=== PATIENT | male | born 1950 | race Hispanic/Latino ===

== ENCOUNTER 2016-12-03 06:16 | Inpatient (IN) | payer MEDICARE, OTHER ==
[2016-12-02 14:58] VITALS: BMI 39.4
--- NOTE | 2016-12-03 07:01 | CP.PCM.HP ---
History of Present Illness - History of Present Illness History of Present Illness: PCP: Alden Osorio MD Orthopedic Surgeon: Dr Ybarra Chief Complaint: Chronic left Hip Osteoarthritis HPI: 65 years old male with Hx of HLD and Gastritis and osteoarthritis comes for an elective Left Total Hip replacement. He has been with left hip pain due to osteoarthritis for many years, treated with conservative management. At present he cannot tolerate the pain which is not relieved with analgesics so he agreed to the Left THR. He has no headache, dizziness, nausea, vomits, cough. No chest pain nor SOB, no palpitation. No diarrhea, dysuria nor urinary frequency. PMH: HLD; Gastritis; Vertigo. PSH: Right TKR in 01/03/2016 SH: Non smoker; Occasional Alcohol use; No illegal drug use; Live with his family FH: Mother with heart disease Allergies: NKDA Present on Admission - Present on Admission Any Indicators Present on Admission: No History of DVT/PE: No History of Uncontrolled Diabetes: No Urinary Catheter: No Decubitus Ulcer Present: No Review of Systems - Constitutional Constitutional: absent: Anorexia, Chills, Fatigue, Fever, Headache - EENT Eyes: Requires Corrective Lenses. absent: Diplopia, Photophobia, Sees Flashes Ears: absent: Ear Discharge, Ear Pain, Tinnitus Nose/Mouth/Throat: absent: Epistaxis, Nasal Congestion, Nasal Discharge, Sinus Pain, Sinus Pressure, Sore Throat - Cardiovascular Cardiovascular: absent: Chest Pain, Dyspnea, Leg Edema, Orthopnea - Respiratory Respiratory: absent: Cough, Dyspnea, Wheezing, Stridor - Gastrointestinal Gastrointestinal: absent: Abdominal Pain, Constipation, Diarrhea, Nausea, Vomiting - Genitourinary Genitourinary: absent: Dysuria, Flank Pain, Hematuria, Freq UTI - Musculoskeletal Musculoskeletal: absent: Muscle Weakness Additional comments: pain to the left hip on ambulation - Integumentary Integumentary: absent: Pruritus, Rash, Skin Ulcer, Sores, Swelling - Neurological Neurological: absent: Dizziness, Focal Weakness, Memory Loss, Weakness - Psychiatric Psychiatric: absent: Anxiety, Depression, Panic Attacks - Endocrine Endocrine: absent: Palpitations, Polydipsia, Polyphagia, Polyuria - Hematologic/Lymphatic Hematologic: absent: Easy Bleeding, Easy Bruising Past Patient History - Past Medical History & Family History Past Medical History?: Yes - Past Social History Smoking Status: Never Smoked Chewing Tobacco Use: No Cigar Use: No Alcohol: Social Home Situation {Lives}: With Family - CARDIAC Hx Cardiac Disorders: Yes Hx Hypercholesterolemia: Yes - PULMONARY Hx Respiratory Disorders: No - NEUROLOGICAL Hx Neurological Disorder: Yes Hx Vertigo: Yes - HEENT Hx HEENT Problems: No - RENAL Hx Chronic Kidney Disease: No - ENDOCRINE/METABOLIC Hx Endocrine Disorders: No - HEMATOLOGICAL/ONCOLOGICAL Hx Blood Disorders: No - INTEGUMENTARY Hx Dermatological Problems: No - MUSCULOSKELETAL/RHEUMATOLOGICAL Hx Musculoskeletal Disorders: Yes Hx Arthritis: Yes Hx Osteoarthritis: Yes Other/Comment: MUSCLE WEAKNESS.LIMIT MOTION - GASTROINTESTINAL Hx Gastrointestinal Disorders: No - GENITOURINARY/GYNECOLOGICAL Hx Genitourinary Disorders: No - PSYCHIATRIC Hx Psychophysiologic Disorder: No - SURGICAL HISTORY Hx Surgeries: Yes Hx Joint Replacement: Yes (TOTAL LEFT KNEE REPLACEMENT 01/03/2016) Other/Comment: EXCISION LIPOMA ON BACK - ANESTHESIA Hx Anesthesia: Yes Hx Anesthesia Reactions: No Hx Malignant Hyperthermia: No Has any member of the family had a problem w/ anesthesia?: No Meds Allergies/Adverse Reactions: Allergies Allergy/AdvReac Type Severity Reaction Status Date / Time No Known Allergies Allergy Verified 12/02/16 14:58 Physical Exam - Head Exam Head Exam: ATRAUMATIC, NORMAL INSPECTION, NORMOCEPHALIC - Eye Exam Eye Exam: EOMI, Normal appearance Pupil Exam: NORMAL ACCOMODATION, PERRL - ENT Exam ENT Exam: Mucous Membranes Moist, Normal Exam, Normal External Ear Exam, Normal Oropharynx - Neck Exam Neck exam: Positive for: Full Rom, Normal Inspection. Negative for: Lymphadenopathy, Tenderness - Respiratory Exam Respiratory Exam: Clear to Auscultation Bilateral. absent: Rales, Wheezes - Cardiovascular Exam Cardiovascular Exam: REGULAR RHYTHM, RRR, +S1, +S2. absent: Gallop, JVD - GI/Abdominal Exam GI & Abdominal Exam: Normal Bowel Sounds, Soft. absent: Mass, Organomegaly, Tenderness - Rectal Exam Rectal Exam: Deferred - Extremities Exam Extremities exam: Negative for: calf tenderness, joint swelling, pedal edema - Back Exam Back exam: NORMAL INSPECTION. absent: CVA tenderness (L), CVA tenderness (R) - Neurological Exam Neurological exam: Alert, CN II-XII Intact, Oriented x3, Reflexes Normal - Psychiatric Exam Psychiatric exam: Normal Affect, Normal Mood - Skin Skin Exam: Dry, Intact, Normal Color, Warm Results - Vital Signs Recent Vital Signs: Last Vital Signs Temp 98.2 F 12/03/16 06:46 Pulse 58 L 12/03/16 06:49 Resp 20 12/03/16 06:46 BP 144/78 12/03/16 06:46 Pulse Ox 98 12/03/16 06:46 - Labs Labs: 11/19/16 Hb 15.9g HT 47.8 WBC 8.1 Potassium 4.1 Sodium 140 Creatinine 0.83 INR 1.1 PTT 32 - EKG Data EKG comments: Sinus Bradycardia 59/min - Imaging and Cardiology Chest x-ray Status: Report reviewed by me Additional comment: No infiltrate Assessment & Plan - Assessment and Plan (Free Text) Assessment: #. Osteoarthritis of left Hip #. HLD #. Gastritis Plan: 65 years old male with Hx of HLD and Gastritis and osteoarthritis comes for an elective Left Total Hip replacement. He has been with left hip pain due to osteoarthritis for many years, treated with conservative management. #. Osteoarthritis of left Hip for Elective Left THR - Consult Dr Ybarra Orthopedic - orhtopedic management - post OP DVT prophylaxis - Post Op pain management #. HLD - Zocor 20mg PO daily Post OP #. Gastritis - Pantoprazole Post OP #. Code Status: Full - Date & Time Date: 12/03/16 Time: 07:01
[2016-12-03] MEDS ORDERED: Bacitracin Ointment 30 GM TUBE ONE (07:11)
[2016-12-03] MEDS ORDERED: Bupivacaine 0.5% Inj(30mL) ONE (07:11)
[2016-12-03] MEDS ORDERED: Lidocaine 1% Inj (20ml) ONE (07:11)
[2016-12-03] MEDS ORDERED: Thrombin Topical 5,000 IU Spray Kit ONE (07:12)
[2016-12-03] MEDS ORDERED: Absorbable Gelatin Sponge Size 100 ONE (07:12)
[2016-12-03] MEDS ORDERED: Midazolam 2 MG/2 ML VIAL ONE (07:38)
[2016-12-03] MEDS ORDERED: Propofol 10 mg/ml Inj (20 ML) ONE (07:38)
[2016-12-03] MEDS ORDERED: Succinylcholine 200 mg/10 ml Inj IV ONE (07:39)
[2016-12-03] MEDS ORDERED: Morphine 1 mg/ml preservative-free Inj(Duramorph) ONE (07:42)
[2016-12-03] MEDS ORDERED: Rocuronium 10 mg/ml (5 ml) ONE ×2 (08:08→08:51)
[2016-12-03] MEDS ORDERED: ePHEDrine 50 mg/ml Inj ONE (09:10)
[2016-12-03] MEDS ORDERED: Lactated Ringer's 1,000 ML IV ONE ×3 (09:30→16:30)
[2016-12-03] MEDS ORDERED: Sevoflurane - Inhalation Anesthetic Liq (250 ml) ONE (09:37)
[2016-12-03] MEDS ORDERED: Neostigmine Methylsulfate 3mg/3ml Syringe IV ONE (11:14)
[2016-12-03] MEDS ORDERED: Neostigmine Methylsulfate 2 MG/2 ML ML IV ONE (11:36)
[2016-12-03] MEDS ORDERED: Dexamethasone 4 mg/1 ml IVP PRN (11:54)
[2016-12-03] MEDS ORDERED: Oxycodone/Acetaminophen 5/325 mg Tab PO PRN (11:56)
[2016-12-03] MEDS: HYDROmorphone 0.5 mg/0.5 ml ISec IVP PRN ×2 (12:30→13:50)
[2016-12-03] MEDS ORDERED: Pneumococcal 23-Valent Vaccine IM ONE (13:02)
--- NOTE | 2016-12-03 15:01 | RAD ---
PROCEDURE: Fluoroscopy up to 1 hr. HISTORY: LEFT HIP COMPARISON: None TECHNIQUE: Standard protocol for this study/examination. FINDINGS: Total fluoroscopic time (continuous mode) utilized during the procedure: 28.2 seconds. IMPRESSION: Less than 1 hr fluoroscopic time utilized during performance of the procedure.
--- NOTE | 2016-12-03 15:08 | RAD ---
PROCEDURE: Left hip single view HISTORY: post op left anterior hip replacement COMPARISON: None TECHNIQUE: Standard protocol for this study/examination. FINDINGS: Satisfactory position alignment of components left OWEN. Severe degenerative changes right hip. IMPRESSION: Satisfactory postoperative status.
[2016-12-03] MEDS: ceFAZolin 2 GM in Sodium Chloride 0.9% 100 ML IVPB SCH (16:06)
[2016-12-04] MEDS: ceFAZolin 2 GM in Sodium Chloride 0.9% 100 ML IVPB SCH (00:46)
[2016-12-04] MEDS: Pantoprazole 40 mg EC Tab PO SCH (08:37)
--- NOTE | 2016-12-04 10:44 | PCM.SURG1 ---
Surgeon's Initial Post Op Note - Surgeon's Notes Surgeon: Amada Office Clerk Assistant: ANISH Sainz/ 2nd assist Maldonado Liz Type of Anesthesia: General Endo, Spinal Anesthesia Administered By: DR Barber Pre-Operative Diagnosis: Severe hypeertrophic O/A L hip Operative Findings: as abobe. marked synopvitis L hip. multiplew contractures aroung thew hip+ iliopsoas tendon Post-Operative Diagnosis: as above Operation Performed: L THR. femoral neck osteotomy. arthrotomy/ synovectomy. release iliopsoas tendon Specimen/Specimens Removed: fermoral neck/synovium/cartilage bone ( femoral head ) Estimated Blood Loss: EBL {In ML}: 35 Blood Products Given: N/A Drains Used: No Drains Post-Op Condition: Good Date of Surgery/Procedure: 12/04/16 Time of Surgery/Procedure: 09:35 (time in room 8:30)
[2016-12-04] MEDS ORDERED: Lactated Ringer's 1,000 ML IV SCH (16:00)
[2016-12-04] MEDS ORDERED: Oxycodone/Acetaminophen 5/325 mg Tab PO PRN (18:00)
--- NOTE | 2016-12-04 18:00 | CP.PCM.PN ---
Subjective - Date & Time of Evaluation Date of Evaluation: 12/04/16 Time of Evaluation: 17:00 - Subjective Subjective: Patient seen and examined bedside. s/p Left tHR day #1 . Complains of pain to left hip . participated with PT. Hemodynamically stable, afebrile. No acute issues overnight. Objective - Vital Signs/Intake and Output Vital Signs (last 24 hours): Temp Pulse Resp BP Pulse Ox 99.3 F 85 18 116/72 95 12/04/16 16:24 12/04/16 16:24 12/04/16 16:24 12/04/16 16:24 12/04/16 16:24 - Medications Medications: Current Medications Aspirin (Ecotrin) 81 mg PO DAILY [facility] Last Admin: 12/04/16 08:36 Dose: 81 mg Atorvastatin Calcium (Lipitor) 10 mg PO DAILY [facility] Last Admin: 12/04/16 08:36 Dose: 10 mg Docusate Sodium (Colace) 100 mg PO BID [facility] Last Admin: 12/04/16 16:28 Dose: 100 mg Lactated Ringer's (Lactated Ringer's) 1,000 mls @ 125 mls/hr IV .Q8H [facility] Last Admin: 12/04/16 16:28 Dose: 125 mls/hr Morphine Sulfate (Morphine) 2 mg IVP Q4 PRN PRN Reason: Pain, severe (8-10) Oxycodone/Acetaminophen (Percocet 5/325 Mg Tab) 2 tab PO Q4 PRN PRN Reason: Pain, moderate (4-7) Stop: 12/06/16 11:57 Last Admin: 12/04/16 15:32 Dose: 2 tab Pantoprazole Sodium (Protonix Ec Tab) 40 mg PO DAILY [facility] Last Admin: 12/04/16 08:37 Dose: 40 mg - Constitutional Appears: Non-toxic, No Acute Distress - Head Exam Head Exam: ATRAUMATIC, NORMAL INSPECTION, NORMOCEPHALIC - Eye Exam Eye Exam: EOMI, Normal appearance, PERRL Pupil Exam: NORMAL ACCOMODATION - ENT Exam ENT Exam: Mucous Membranes Moist, Normal Exam - Neck Exam Neck Exam: Full ROM, Normal Inspection - Respiratory Exam Respiratory Exam: Clear to Ausculation Bilateral. absent: Rales, Rhonchi, Wheezes - Cardiovascular Exam Cardiovascular Exam: REGULAR RHYTHM, RRR, +S1, +S2. absent: JVD - GI/Abdominal Exam GI & Abdominal Exam: Soft, Normal Bowel Sounds. absent: Distended, Guarding, Tenderness, Rebound - Rectal Exam Rectal Exam: Deferred - Extremities Exam Extremities Exam: absent: Calf Tenderness, Pedal Edema Additional comments: left hip surgical incision with dressing in place - Back Exam Back Exam: NORMAL INSPECTION - Neurological Exam Neurological Exam: Alert, Awake, CN II-XII Intact, Oriented x3 - Psychiatric Exam Psychiatric exam: Normal Affect, Normal Mood - Skin Skin Exam: Dry, Intact, Normal Color, Warm Assessment and Plan - Assessment and Plan (Free Text) Assessment: 65 years old male with Hx of HLD and Gastritis and osteoarthritis came in for an elective Left Total Hip replacement. He has been with left hip pain due to osteoarthritis for many years, treated with conservative management. Today post op day 1 and doing well.No labs done this AM 1. Osteoarthritis of left Hip , s/p left THR post op day 1 D/c BUSINESS ASST pump and start Percoset PRN for pain control Ortho consulted Dr. Ybarra Incentive spirometry PT/Ot joceline appreciated. To be transferred to [facility] on thursday DVt prophylaxis with ASA Repeat CBC in AM 2.Dyslipidemia Zocor 20 mg 3. Gastritis on Pantoprazole 4. DVt prophylaxis SCd and ASA
[2016-12-04] MEDS: Oxycodone/Acetaminophen 5/325 mg Tab PO PRN (22:47)
[2016-12-05 07:54] LABS: HEMATOCRIT 37.9 % (35.0-51.0); MEAN CELL VOLUME 88.5 fl (80.0-94.0); MEAN CORPUSCULAR HEMOGLOBIN 30.2 pg (27.0-31.0); MEAN CORPUSCULAR HGB CONC 34.2 g/dL (33.0-37.0); RED CELL DISTRIBUTION WIDTH 13.3 % (11.5-14.5); WHITE BLOOD COUNT 8.3 K/uL (4.8-10.8)
--- NOTE | 2016-12-05 08:02 | OP ---
PROCEDURE DATE: 12/04/2016 PREOPERATIVE DIAGNOSIS: Primary osteoarthritis of the left hip. POSTOPERATIVE DIAGNOSES: Primary osteoarthritis of the left hip. Extensive synovitis of the hip vinny nt. PROCEDURES: 1. Left total hip replacement arthroplasty, anterior approach. 2. Femoral neck osteotomy. 3. Release of iliopsoas tendon. 4. Autograft bone graft. 5. Arthrotomy, synovectomy of the hip joint. SURGEON: Rubens Ybarra MD TECHNICIAN ANATOMIC PATHOLOGY: Bonnie Madrigal, Certified Registered Nursing Robotics Technologist. ANESTHESIA: Spinal general anesthesia. BLOOD LOSS: 175 mL. BLOOD PRODUCTS GIVEN: One unit packed red cells. COMPLICATIONS: No complications. DRAINS: No drains. OPERATIVE INDICATION: The patient is a 65-year-old gentleman who presents with severe pain and restr icted range of motion of the left hip. The patient is now well known to my practice. The patient méndez s been having increasing pain in the area of the left hip over the last year. 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 Pros, cons, risks and benefits of surgical approach were discussed. The pos sibility of mechanical failure, infection, thromboembolic disease, secondary or even tertiary surgery was discussed with the patient. The culturally competent sand hauler, his son-in-law, is at the [facility] at the time of obtainment of the consent this morning, 12/01. OPERATIVE PROCEDURE: After having obtained informed consent in the above fashion, after having ident ified side, site and procedure in a critical pause/timeout, after the satisfactory induction of the a nesthetic, the patient identified as the patient, in the supine position with all bony prominences we ll padded, the left lower extremity was placed in the AMIS positioner. The traction positioner and t he left lower extremity was prepped and draped in the usual fashion for anterior approach hip surgery . Under the surgeon's direction, the fluoroscope is positioned, video images are generated, therapeu tic decisions are made therefrom. 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 After sterilely prepping and draping, after having obtained informed consent, after the satisfactory induc tion of spinal and general anesthesia, after having identified side, site, and procedure in a critica l pause/time out, the patient identified as the patient, is sterilely prepped and draped. After revi fernando the intraoperative x-ray and after carefully planning the femoral neck osteotomy because of the pre-existing leg length inequality, an incision is described 1 fingerbreadth distal to the ASIS, 3 f ingerbreadths posterior and 5 fingerbreadths distal. The skin incision is carried down through the s kin and subcutaneous tissue after having identified side, site and procedure in a critical pause/time out. This having been accomplished, the fascia of the tensor fascia femoris is divided. The digastr ic tensor fascia femoris muscle is taken down from the fascia. The modified Adson Kwame retractor is placed. The fascia posterior to the rectus femoris is identified and developed and the fascia is released. The anterior branch of the lateral femoral circumflex vessels are identified after the fas karla is carefully divided and after replacement of the Adson Kwame retractor. This having been acco mplished, the capsulotomy was accomplished at the inferior aspect of the neck and it is elevated in a triangular fashion to the area of the fingerbreadth above the lesser trochanter. This is tagged wit h a stay suture and at this point in time, with the leg having been in external rotation and internal rotation for development of the capsular flap, the planned osteotomy is accomplished. The femoral n lion osteotomy is accomplished at the saddle of the hip in the area of the trochanter 1 fingerbreadth to 2 fingerbreadths above the lesser trochanter in the virtual planning intraoperatively. The femora l neck osteotomy is accomplished. Implant is a separate procedure because of the complexity of the o steotomy in terms of the leg length inequality. This having been accomplished, the head and neck is removed from the acetabulum, traction is turned to 45 degrees, the cork screw is placed. The femoral head and neck are removed. This having been accomplished, the acetabulum is exposed. The labrum is excised. Arthrotomy and synovectomy are accomplished. There is found to be an exuberant synovitis and it should be noted that because of the leg length inequality, the femoral neck osteotomy is plann ed both preoperatively and intraoperatively with portable x-rays. The femoral neck osteotomy having been accomplished, because of its complexity is a separate billing code. At this point in time, arth rotomy and synovectomy are accomplished of the hip joint. The pulvinar is excised. The acetabulum i s exposed with a C retractor and with a modified Charnley retractor in the capsule. Extensive synove ctomy having been accomplished, reaming is accomplished to 54 mm at approximately 40 degrees of abduc tion and 20 degrees of anteversion. Reaming having been accomplished, the reamings are denuded of ar ticular cartilage and this having been accomplished, the 54 trial is found to be excellent and the 54 Medacta cup is impacted after autograft bone grafting to the acetabulum. The reamings denuded of ar ticular cartilage have been used to autograft bone graft to the acetabulum. The cup is impacted and attention is now turned to the femur. With the limb in 90 degrees of external rotation, the pubofemo ral ligament is identified and released. Great care is taken to release the ischial femoral ligament and the iliofemoral ligament. This having been accomplished, the femur is found to be mobile. With the pitchfork retractor, the femoral neck is exposed. With external rotation to another 2 clicks an d with flexion and abduction, the femur is exposed. The bridge of bone between the neck and the troc hanter are removed. The rasp is introduced after burring. Sequential broaching is carried out to a #6 femoral component and it is found to be excellent with a -3.5 head and 54 mm outer bearing. This having been accomplished, the iliopsoas tendon is identified and released because of the contractures after the capsular release had been accomplished. Hemostasis is controlled with the Aquamantys, the wound is thoroughly irrigated. The cup having been placed and bone grafting to the femoral stem is accomplished ____ as well, closure is in layers with 0 Quill, 0 Quill, jose luis for skin. Blood loss is 175 mL. The compression dressing and Aquacel are applied. Rubens Ybarra MD cc: [id number] TT: 12/04/2016 13:48:22 sn
[2016-12-05 08:04] LABS: BLOOD UREA NITROGEN 11 mg/dl (9-20); CALCIUM 8.6 mg/dL (8.4-10.2); CARBON DIOXIDE 27 mmol/L (22-30); CHLORIDE 100 mmol/L (98-107); GFR AFRICAN-AMERICAN > 60; GLUCOSE,RANDOM 125 mg/dL (75-110); POTASSIUM 3.9 MMOL/L (3.6-5.0); SODIUM 138 mmol/l (132-148)
--- NOTE | 2016-12-05 08:21 | CP.PCM.PN ---
Subjective - Date & Time of Evaluation Date of Evaluation: 12/05/16 Time of Evaluation: 08:20 - Subjective Subjective: pt comfortable no gross deficits admitted/with post op incisional discomfort Objective - Vital Signs/Intake and Output Vital Signs (last 24 hours): Temp Pulse Resp BP Pulse Ox 98.7 F 68 20 136/74 95 12/05/16 07:35 12/05/16 07:35 12/05/16 07:35 12/05/16 07:35 12/05/16 07:35 - Medications Medications: Current Medications Aspirin (Ecotrin) 81 mg PO DAILY [facility] Last Admin: 12/04/16 08:36 Dose: 81 mg Atorvastatin Calcium (Lipitor) 10 mg PO DAILY [facility] Last Admin: 12/04/16 08:36 Dose: 10 mg Docusate Sodium (Colace) 100 mg PO BID [facility] Last Admin: 12/04/16 16:28 Dose: 100 mg Oxycodone/Acetaminophen (Percocet 5/325 Mg Tab) 1 tab PO Q4 PRN PRN Reason: Pain, moderate (4-7) Stop: 12/07/16 18:01 Oxycodone/Acetaminophen (Percocet 5/325 Mg Tab) 2 tab PO Q6 PRN PRN Reason: Pain, severe (8-10) Stop: 12/07/16 18:01 Last Admin: 12/04/16 22:47 Dose: 2 tab Pantoprazole Sodium (Protonix Ec Tab) 40 mg PO DAILY [facility] Last Admin: 12/04/16 08:37 Dose: 40 mg - Labs Labs: 12/05/16 06:30 12/05/16 06:30 - Additional Findings Additional findings: Objective stance/gairt- defrred L hip wound benign thigh soft orthopedically stable Assessment and Plan - Assessment and Plan (Free Text) Assessment: A- s/p successful L thr P fwb orthoped ially stable
[2016-12-05] MEDS: Oxycodone/Acetaminophen 5/325 mg Tab PO PRN ×2 (08:53→21:58)
[2016-12-05] MEDS: Pantoprazole 40 mg EC Tab PO SCH (08:53)
--- NOTE | 2016-12-05 09:46 | CP.PCM.PN ---
Subjective - Date & Time of Evaluation Date of Evaluation: 12/05/16 Time of Evaluation: 12:00 - Subjective Subjective: Patient seen and examined bedside. Complains of pain to left hip around the surgical incision. Hemodynamically stable, afebrile. No acute issues overnight. Objective - Vital Signs/Intake and Output Vital Signs (last 24 hours): Temp Pulse Resp BP Pulse Ox 98.7 F 68 20 136/74 95 12/05/16 07:35 12/05/16 07:35 12/05/16 07:35 12/05/16 07:35 12/05/16 07:35 - Medications Medications: Current Medications Aspirin (Ecotrin) 81 mg PO DAILY [facility] Last Admin: 12/05/16 08:53 Dose: 81 mg Atorvastatin Calcium (Lipitor) 10 mg PO DAILY [facility] Last Admin: 12/05/16 08:53 Dose: 10 mg Docusate Sodium (Colace) 100 mg PO BID [facility] Last Admin: 12/05/16 08:53 Dose: 100 mg Oxycodone/Acetaminophen (Percocet 5/325 Mg Tab) 1 tab PO Q4 PRN PRN Reason: Pain, moderate (4-7) Stop: 12/07/16 18:01 Oxycodone/Acetaminophen (Percocet 5/325 Mg Tab) 2 tab PO Q6 PRN PRN Reason: Pain, severe (8-10) Stop: 12/07/16 18:01 Last Admin: 12/05/16 08:53 Dose: 2 tab Pantoprazole Sodium (Protonix Ec Tab) 40 mg PO DAILY [facility] Last Admin: 12/05/16 08:53 Dose: 40 mg - Labs Labs: 12/05/16 06:30 12/05/16 06:30 - Constitutional Appears: Non-toxic, No Acute Distress - Head Exam Head Exam: ATRAUMATIC, NORMAL INSPECTION, NORMOCEPHALIC - Eye Exam Eye Exam: EOMI, Normal appearance, PERRL Pupil Exam: NORMAL ACCOMODATION - ENT Exam ENT Exam: Mucous Membranes Moist, Normal Exam - Neck Exam Neck Exam: Full ROM, Normal Inspection - Respiratory Exam Respiratory Exam: Clear to Ausculation Bilateral, NORMAL BREATHING PATTERN. absent: Rales, Rhonchi, Wheezes - Cardiovascular Exam Cardiovascular Exam: REGULAR RHYTHM, RRR, +S1, +S2. absent: JVD - GI/Abdominal Exam GI & Abdominal Exam: Soft, Normal Bowel Sounds. absent: Distended, Guarding, Tenderness, Rebound - Rectal Exam Rectal Exam: Deferred - Extremities Exam Extremities Exam: Normal Capillary Refill. absent: Pedal Edema Additional comments: left hip surgical incision with dressing in place dry and intact - Back Exam Back Exam: NORMAL INSPECTION - Neurological Exam Neurological Exam: Alert, Awake, CN II-XII Intact, Oriented x3 - Psychiatric Exam Psychiatric exam: Normal Affect, Normal Mood - Skin Skin Exam: Dry, Normal Color, Warm Assessment and Plan - Assessment and Plan (Free Text) Assessment: 65 years old male with Hx of HLD and Gastritis and osteoarthritis came in for an elective Left Total Hip replacement. He has been with left hip pain due to osteoarthritis for many years, treated with conservative management. Today post op day 2 and doing well. 1. Osteoarthritis of left Hip , s/p left THR post op day 2 SKEIN BANDER pump discontinued and started Percoset PRN for pain control. Complains of pain to left hip especially with PT Ortho consulted Dr. Ybarra Continue incentive spirometry PT/OT joceline appreciated. For transfer to [facility] in AM DVT prophylaxis with ASA 2.Dyslipidemia Zocor 20 mg 3. Gastritis on Pantoprazole 4. DVt prophylaxis SCD and ASA
[2016-12-05 20:09] VITALS: RESP 20
[2016-12-05 23:06] LABS: RBC URINE 1 /hpf (0-3); URINE BILIRUBIN NEGATIVE (NEGATIVE); URINE BLOOD NEGATIVE (NEGATIVE); URINE COLOR STRAW (YELLOW); URINE GLUCOSE (UA) NEG (Normal); URINE KETONE NEGATIVE (NEGATIVE); URINE LEUKOCYTE ESTERASE NEG Leu/uL (Negative); URINE PROTEIN NEGATIVE (NEGATIVE); URINE UROBILINOGEN 0.2-1.0 mg/dL (0.2-1.0); WBC URINE < 1 /hpf (0-5)
[2016-12-06 07:10] LABS: HEMATOCRIT 37.5 % (35.0-51.0); MEAN CELL VOLUME 88.3 fl (80.0-94.0); MEAN CORPUSCULAR HEMOGLOBIN 29.5 pg (27.0-31.0); MEAN CORPUSCULAR HGB CONC 33.4 g/dL (33.0-37.0); RED CELL DISTRIBUTION WIDTH 13.2 % (11.5-14.5); WHITE BLOOD COUNT 7.3 K/uL (4.8-10.8)
[2016-12-06 08:17] VITALS: BP 125/74; PULSE 77; TEMP 99.1; O2SAT 95
[2016-12-06] MEDS: Pantoprazole 40 mg EC Tab PO SCH (09:22)
--- NOTE | 2016-12-06 09:33 | CP.PCM.PN ---
Subjective - Date & Time of Evaluation Date of Evaluation: 12/06/16 Time of Evaluation: 09:30 - Subjective Subjective: S- pt with minimal post op discomfort/some concern about inability to SLR ( normal) Objective - Vital Signs/Intake and Output Vital Signs (last 24 hours): Temp Pulse Resp BP Pulse Ox 99.1 F 77 20 125/74 95 12/06/16 08:17 12/06/16 08:17 12/06/16 08:17 12/06/16 08:17 12/06/16 08:17 - Medications Medications: Current Medications Aspirin (Ecotrin) 81 mg PO DAILY [facility] Last Admin: 12/06/16 09:21 Dose: 81 mg Atorvastatin Calcium (Lipitor) 10 mg PO DAILY [facility] Last Admin: 12/06/16 09:21 Dose: 10 mg Docusate Sodium (Colace) 100 mg PO BID [facility] Last Admin: 12/06/16 09:21 Dose: 100 mg Lactulose (Enulose) 20 gm PO DAILY PRN PRN Reason: Constipation Last Admin: 12/06/16 09:22 Dose: 20 gm Oxycodone/Acetaminophen (Percocet 5/325 Mg Tab) 1 tab PO Q4 PRN PRN Reason: Pain, moderate (4-7) Stop: 12/07/16 18:01 Oxycodone/Acetaminophen (Percocet 5/325 Mg Tab) 2 tab PO Q6 PRN PRN Reason: Pain, severe (8-10) Stop: 12/07/16 18:01 Last Admin: 12/05/16 21:58 Dose: 2 tab Pantoprazole Sodium (Protonix Ec Tab) 40 mg PO DAILY [facility] Last Admin: 12/06/16 09:22 Dose: 40 mg - Labs Labs: 12/06/16 05:30 12/05/16 06:30 - Skin Additional comments: Obj systemic- wnl Musculoskeletal stance/gait- defrrpt OOB to chair pt able to extend knee; some minor decrease sensation ant thigh; sensation intact however Xrays- reveal excellent position of construct Assessment and Plan - Assessment and Plan (Free Text) Assessment: s/p L THR - no evidence for neuraPRAXIA;PT ABLE TO EXTEND KNEE P orthopedically stable for transfer
--- NOTE | 2016-12-06 10:28 | CP.PCM.DIS ---
Provider - Provider Date of Admission: 12/03/16 11:47 Attending physician: Yemi Mac MD Primary care physician: Rubens Ybarra III, MD Consults: Ortho: Dr Ybarra Time Spent in preparation of Discharge (in minutes): 30 Diagnosis - Discharge Diagnosis (1) Primary osteoarthritis of left hip Status: Chronic (2) S/P hip replacement Status: Acute (3) Hyperlipidemia Status: Chronic (4) Gastritis Status: Chronic (5) DVT prophylaxis Status: Acute Hospital Course - Lab Results Lab Results: Most Recent Lab Values WBC 7.3 K/uL (4.8-10.8) 12/06/16 05:30 RBC 4.25 Mil/uL (4.40-5.90) L 12/06/16 05:30 Hgb 12.5 g/dL (12.0-18.0) 12/06/16 05:30 Hct 37.5 % (35.0-51.0) 12/06/16 05:30 MCV 88.3 fl (80.0-94.0) 12/06/16 05:30 MCH 29.5 pg (27.0-31.0) 12/06/16 05:30 MCHC 33.4 g/dL (33.0-37.0) 12/06/16 05:30 RDW 13.2 % (11.5-14.5) 12/06/16 05:30 Plt Count 143 K/uL (130-400) 12/06/16 05:30 Sodium 138 mmol/l (132-148) 12/05/16 06:30 Potassium 3.9 MMOL/L (3.6-5.0) 12/05/16 06:30 Chloride 100 mmol/L (98-107) 12/05/16 06:30 Carbon Dioxide 27 mmol/L (22-30) 12/05/16 06:30 Anion Gap 15 (10-20) 12/05/16 06:30 BUN 11 mg/dl (9-20) 12/05/16 06:30 Creatinine 0.8 mg/dL (0.8-1.5) 12/05/16 06:30 Est GFR ( Amer) > 60 12/05/16 06:30 Est GFR (Non-Af Amer) > 60 12/05/16 06:30 POC Glucose (mg/dL) 140 mg/dL (65-110) H 12/04/16 05:59 Random Glucose 125 mg/dL (75-110) H 12/05/16 06:30 Calcium 8.6 mg/dL (8.4-10.2) 12/05/16 06:30 Urine Color Straw (YELLOW) 12/05/16 22:56 Urine Clarity Clear (Clear) 12/05/16 22:56 Urine pH 7.0 (5.0-8.0) 12/05/16 22:56 Ur Specific Nursery 1.005 (1.003-1.030) 12/05/16 22:56 Urine Protein Negative mg/dL (NEGATIVE) 12/05/16 22:56 Urine Glucose (UA) Neg mg/dL (Normal) 12/05/16 22:56 Urine Ketones Negative mg/dL (NEGATIVE) 12/05/16 22:56 Urine Blood Negative (NEGATIVE) 12/05/16 22:56 Urine Nitrate Negative (NEGATIVE) 12/05/16 22:56 Urine Bilirubin Negative (NEGATIVE) 12/05/16 22:56 Urine Urobilinogen 0.2-1.0 mg/dL (0.2-1.0) 12/05/16 22:56 Ur Leukocyte Esterase Neg Karmen/uL (Negative) 12/05/16 22:56 Urine RBC (Auto) 1 /hpf (0-3) 12/05/16 22:56 Urine Microscopic WBC < 1 /hpf (0-5) 12/05/16 22:56 Blood Type A POSITIVE 12/03/16 06:30 Blood Type Confirm A POSITIVE 12/03/16 08:11 Antibody Screen Negative 12/03/16 06:30 Crossmatch See Detail 12/03/16 06:30 BBK History Checked No verified bt 12/03/16 06:30 - Hospital Course Hospital Course: 65 years old male with Hx of HLD and Gastritis and osteoarthritis came in for an elective Left Total Hip replacement. He has been with left hip pain due to osteoarthritis for many years, treated with conservative management. s/p Left THR done by Dr Ybarra, no post op complication. Post op pain controlled. PT/ OT consulted. d/c pt to [facility] for further Rehab. 1. Primary Osteoarthritis of left Hip , s/p left THR Ortho consulted Dr. Ybarra- Left THR done Continue incentive spirometry PT/OT Pain mgt - Percocet d/c to [facility] for further PT/OT 2.Dyslipidemia Zocor 20 mg 3. Gastritis on Pantoprazole 4. DVt prophylaxis SCD and ASA Discharge Exam - Head Exam Head Exam: ATRAUMATIC, NORMAL INSPECTION, NORMOCEPHALIC - Eye Exam Eye Exam: EOMI, Normal appearance, PERRL Pupil Exam: NORMAL ACCOMODATION - ENT Exam ENT Exam: Mucous Membranes Moist, Normal External Ear Exam - Neck Exam Neck exam: Full Rom - Respiratory Exam Respiratory Exam: NORMAL BREATHING PATTERN. absent: Respiratory Distress - Cardiovascular Exam Cardiovascular Exam: REGULAR RHYTHM, +S1, +S2 - GI/Abdominal Exam GI & Abdominal Exam: Normal Bowel Sounds, Soft. absent: Tenderness - Extremities Exam Extremities exam: normal capillary refill, pedal pulses present Additional comments: no calf tenderness - Back Exam Back exam: absent: CVA tenderness (L), CVA tenderness (R) - Neurological Exam Neurological exam: Alert, CN II-XII Intact, Oriented x3, Reflexes Normal - Psychiatric Exam Psychiatric exam: Normal Affect, Normal Mood - Skin Skin Exam: Dry, Normal Color, Warm Discharge Plan - Follow Up Plan Condition: GOOD Disposition: TRANSF TO SNF Instructions: Total Hip Replacement (DC) Additional Instructions: d/c pt to [facility] ff up with Dr Ybarra in 1 wk mqaintain accuseal po x 1wk-10days til seen by MD Referrals: Rubens Ybarra III, MD [Primary Care Provider] -
== END 2016-12-06 14:31 | DRG 470 ==
LOC: H.OPSURG 06:16 → H.MEDSURG1 11:47
PROVIDERS: ADMIT Family Medicine; ATTEND Family Medicine
PROC: 0SRB0JZ Replacement of Left Hip Joint with Synthetic Substitute, Open Approach (ICD-10-PCS; principal; 2016-12-04)
PROC: 0SBB0ZZ Excision of Left Hip Joint, Open Approach (ICD-10-PCS; 2016-12-04)
PROC: 3E0234Z Introduction of Serum, Toxoid and Vaccine into Muscle, Percutaneous Approach (ICD-10-PCS; 2016-12-04)
DX: M16.12 Unilateral primary osteoarthritis, left hip (principal); E78.5 Hyperlipidemia, unspecified; Z23 Encounter for immunization; K29.50 Unspecified chronic gastritis without bleeding; Z96.651 Presence of right artificial knee joint; M65.9 Synovitis and tenosynovitis, unspecified; M21.70 Unequal limb length (acquired), unspecified site; M24.552 Contracture, left hip